=== PATIENT | male | born 1985 | race Caucasian/White ===

== ENCOUNTER 2023-10-07 21:17 | Emergency (ER) | payer SELFPAY ==
[~2023-10-07] VITALS: Ht 182.9 cm; Wt 82.0 kg
[2023-10-07 21:21] VITALS: O2SAT 98
[2023-10-07] MEDS ORDERED: MAGNESIUM/ALUMINUM HYDROXIDE/SIMETHICONE 30ML UDC PO ONE (23:45)
[2023-10-07] MEDS ORDERED: ONDANSETRON HCL 4MG/2ML INJ IV ONE (23:45)
[2023-10-07] MEDS ORDERED: SODIUM CHLORIDE 0.9% 1,000 ML IV ONE (23:45)
[2023-10-08 00:03] LABS: HEMOGLOBIN. 14.1 g/dL (14.0-18.0); MEAN CORPUSCULAR HEMOGLOBIN 30.7 pg (28.0-32.0); MEAN CORPUSCULAR HGB CONC 32.8 g/dL (31.0-37.0); MEAN CORPUSCULAR VOLUME 93.6 fL (80.0-94.0); MEAN PLATELET VOLUME 7.4 fl (7.4-10.4); PLATELET 337 x1000/uL (130-400); RED BLOOD CELL COUNT 4.59 mill/uL (4.7-6.1); RED CELL DISTRIBUTION WIDTH 13.9 % (11.6-14.6); WHITE BLOOD COUNT 13.4 x1000/uL (4.5-11.0)
[2023-10-08 00:07] LABS: DIFFERENTIAL COMMENT 1
[2023-10-08 00:27] LABS: ALANINE AMINOTRANSFERASE 116 IU/L (10-49); ASPARTATE AMINOTRANSFERASE 132 IU/L (<34); BILIRUBIN TOTAL 0.7 mg/dL (0.1-1.0); CALCIUM 9.5 mg/dL (8.7-10.4); CARBON DIOXIDE 29 mEq/L (21-32); CHLORIDE 103 mEq/L (98-107); GLUCOSE 117 mg/dL (70-105); PROTEIN TOTAL 7.2 g/dL (6.0-8.3); SODIUM 138 mEq/L (136-145); UREA NITROGEN BLOOD 23 mg/dL (9-23)
[2023-10-08] MEDS ORDERED: KETOROLAC 15MG/ML VIAL IV NR (00:45)
[2023-10-08 01:53] LABS: PLATELET ESTIMATE NORMAL
[2023-10-08] MEDS ORDERED: ONDANSETRON HCL 4MG/2ML INJ IV NR (03:45)
[2023-10-08] MEDS ORDERED: MAGNESIUM/ALUMINUM HYDROXIDE/SIMETHICONE 30ML UDC PO NR (03:45)
[2023-10-08] MEDS ORDERED: NAPR275T96 MT (04:46)
[2023-10-08] MEDS ORDERED: ONDA4TAB50 MT (04:46)
[2023-10-08 05:15] VITALS: BP 122/66; PULSE 89; RESP 16; TEMP 98.4
== END 2023-10-08 05:15 | disposition home or self-care (01) ==
LOC: ER 21:17
DX: K80.20 Calculus of gallbladder without cholecystitis without obstruction (principal); F31.9 Bipolar disorder, unspecified; F20.9 Schizophrenia, unspecified
CPT/HCPCS: 80053; 83690; 85025; 36415; 96361; 99285; 76705; 96374; 96375; J7030; J1885; J2405; Z7610 ×2